=== PATIENT | male | born 1985 | race Two or more races ===

== ENCOUNTER 2018-01-29 12:01 | Emergency (ER) | payer SELFPAY ==
[~2018-01-29] VITALS: Ht 170.2 cm; Wt 180.0 kg
[2018-01-29 16:00] VITALS: BP 190/121
[2018-01-29] MEDS ORDERED: KETOROLAC 60MG/2ML VIAL IM ONE (16:00)
[2018-01-29] MEDS ORDERED: LISINOPRIL 10MG TABLET PO ONE (16:15)
[2018-01-29] MEDS ORDERED: LISINOPRIL 10MG TABLET PO NR (16:18)
[2018-01-29] MEDS ORDERED: CLONIDINE 0.1MG TABLET PO ONE (17:00)
== END 2018-01-29 17:01 | disposition left against medical advice (07) ==
LOC: ER 17:01
DX: M54.6 Pain in thoracic spine (principal); I10 Essential (primary) hypertension; Z90.49 Acquired absence of other specified parts of digestive tract; Z90.89 Acquired absence of other organs; Z98.890 Other specified postprocedural states
CPT/HCPCS: 96372; 99283; J1885